=== PATIENT | male | born 1990 | race Hispanic/Latino ===

== ENCOUNTER 2024-11-19 11:44 | Outpatient (CLI) | payer OTHER, SELFPAY ==
--- NOTE | ~2024-11-19 | XR_ITS ---
Lumbosacral Spine: AP and lateral views Clinical History: Pain Findings: The normal lordotic curve is maintained. The vertebral bodies and posterior elements are i ntact. The intervertebral disc spaces are preserved. The sacroiliac joints are normally outlined. Impression: No significant abnormality. Reviewed, dictated and finalized at [facility]. LOGY TEACHER Impression: No significant abnormality.
--- NOTE | ~2024-11-19 | XR_ITS ---
AP view of the pelvis Clinical history: Pain Findings: No acute fracture or dislocation is seen. Osseous alignment is anatomic. Bilateral hip and SI joint spaces are preserved. Soft tissues are unremarkable. Impression: No significant abnormality is seen. Reviewed, dictated and finalized at location M. N ELEVATOR SUPERINTENDENT Impression: No significant abnormality is seen.
== END 2024-11-19 11:45 | disposition home or self-care (01) ==
LOC: MICIMG 11:49
PROVIDERS: PCP Chiropractor; Visit Provider Chiropractor
DX: M54.50 Low back pain, unspecified (principal); M54.16 Radiculopathy, lumbar region; M53.3 Sacrococcygeal disorders, not elsewhere classified
CPT/HCPCS: 72100; 72170

== ENCOUNTER 2025-01-08 04:19 | Emergency (ER) | payer OTHER, SELFPAY ==
--- OUTSIDE RECORDS SUMMARY | 2025-01-08 04:21 | XMS_ITS | Clinical Summary ---
Author Organization [facility] Virtual Care Address [address] [place] [phone] Phone Care Team Providers Care Direct Sales Professional Name Role Phone Casie Farr NP Primary Care Provider [phone] Allergies No known active allergies Medications ibuprofen 200 mg tab/cap Take 2 tablet/caps ule (400 mg total) by mouth every 6 (six) hours as needed for pain Active meloxicam (MOBIC) 15 mg tabletIndication s:Left sciatic nerve pain Take 1 tablet (15 mg total) by mouth daily for 15 days 15 tablet 11/05/2024 Active Hospital, Clinic, or Other Facility Administered Medication Ordered Dose Route Frequency Start Date End Date Status ketorolac (TORADOL) 30 mg/mL injection 30 mgIndications:Left sciatic nerve pain 30 mg IM Once 12/22/2024 12/22/2024 Ended Active Problems Problem Noted Date Diagnosed Date Left sciatic nerve pain 11/05/2024 Assessment & Plan (12/23/2024 5:26 AM CDT): Given Toradol injection Advised not to take ibuprofen, Advil, Motrin, Aleve, naproxen, or aspirin for the remainder of the day, however instructed can take Tylenol or acetaminophen and use topical analgesics such as lidocaine patch, Nathan-Goldman, Icy Hot, heat, and cold, resuming OTC NSAID as directed as needed tomorrow Discussed imaging of lumbar spine and referral to physical therapy if symptoms do not improve, not interested at this time Previously instructed to go to ER if loss of sensation in groin, loss of bowel or bladder control, or weakness or loss of sensation in lower extremity Assessment & Plan (11/05/2024 3:03 PM CROSS ROLLER): Started on meloxicam 15 mg daily with food, instructed to stop if GI upset occurs Advised not to take ibuprofen, Advil, Motrin, Aleve, naproxen, or aspirin while taking meloxicam, however instructed can take Tylenol or acetaminophen and use topical analgesics such as lidocaine patch, Nathan-Goldman, Icy Hot, heat, and cold Discussed imaging of lumbar spine and referral to physical therapy if symptoms do not improve Instructed to ER if loss of sensation in groin, loss of bowel or bladder control, or weakness or loss of sensation in lower extremity Vitamin D deficiency 08/01/2023 Assessment & Plan (07/21/2024 1:23 PM CDT): Chronicity and stability unknown, is taking a supplement, not sure of dose, states takes one drop every day Continued on vitamin D supplement Will monitor for stability Screening for thyroid disorder 07/19/2023 Class 1 obesity due to exces s calories without serious comorbidity with body mass index (BMI) of 31.0 to 31.9 in adult 07/19/2023 Assessment & Plan (12/23/2024 5:26 AM CDT): Stable Encouraged to: Make healthy food choices, limiting intake of concentrated sweets, cholesterol, and saturated fat Monitor daily caloric intake and portion sizes Exercise most days of the week for a goal of at least 150 minutes of exercise per week once current symptoms have resolved Assessment & Plan (11/05/2024 3:02 PM CROSS ROLLER): Stable Encouraged to: Make healthy food choices, limiting intake of concentrated sweets, cholesterol, and saturated fat Monitor daily caloric intake and portion sizes Exercise most days of the week for a goal of at least 150 minutes of exercise per week once current symptoms have resolved Assessment & Plan (07/21/2024 1:18 PM CDT): Chronic, stable Encouraged to: Make healthy food choices, limiting intake of concentrated sweets, cholesterol, and saturated fat Monitor daily caloric intake and portion sizes Exercise most days of the week for a goal of at least 150 minutes of exercise per week Assessment & Plan (07/19/2023 1:35 PM CDT): Chronicity and stability unknown Encouraged to monitor daily caloric intake and portion sizes and to exercise most days of the week, for a goal of at least 150 minutes of exercise per week Encounter for vitamin deficiency screening 07/19 Screening, anemia, deficiency, iron 07/19/2023 Mixed hyperlipidemia 07/19/2023 Assessment & Plan (07/21/2024 1:20 PM CDT): Chronicity and stability unknown Will monitor for stability Assessment & Plan (07/19/2023 1:34 PM CDT): Chronicity and stability unknown Ordered lipid panel Annual physical exam 07/19/2023 Assessment & Plan (07/21/2024 1:22 PM CDT): Reviewed past and current medical history, surgical history, social history, family history, current medications, and allergies. The chart was updated to identify any changes in these areas. A ROS and PE were performed. Labs were ordered. Discussed recommended immunizations. Patient will follow-up annually for physical exam, sooner if needed. Assessment & Plan (07/19/2023 1:33 PM CDT): Reviewed past and current medical history, surgical history, social history, family history, current medications, and allergies. The chart was updated to identify any changes in these areas. A ROS and PE were performed. Medications and labs were ordered and referrals were made. Discussed screening colonoscopy (not due), PSA screening (not due), and recommended immunizations. Patient will follow-up annually for physical exam, sooner if needed. Resolved Problems Problem Noted Date Diagnosed Date Resolved Date Acute pharyngitis 11/29/2023 07/21/2024 Exposure to strep throat 11/29/2023 Hypertriglyceridemia 08/01/2023 024 Chest pain 07/19/2023 07/21/2024 Assessment & Plan (07/19/2023 1:33 PM CDT): Chronic, episodic, currently asymptomatic Referral made to Cardiology for further evaluation and management Ordered chest x-ray Encounters Date Type Department Care Team Description 12/22/2024 9:45 AM CDT Office Visit [facility] Primary Care at [address] [phone] Casie Farr NP Ventral hernia without obstruction or gangrene (Primary Dx); Left sciatic nerve pain; Class 1 obesity due to excess calories without serious comorbidity with body mass index (BMI) of 31.0 to 31.9 in adult 11/05/2024 2:15 PM CROSS ROLLER Office Visit [facility] Primary Care at [address] [phone] Casie Farr NP Left sciatic nerve pain (Primary Dx); Class 1 obesity due to excess calories without serious comorbidity with body mass index (BMI) of 31.0 to 31.9 in adult from Last 3 Months Immunizations Immunization Administration Dates Next Due Hep A, Pediatric 02/03/2002 Hep B, Adolescent or Pediatric 11/25/2001,2000 HiB 08/26/2001 IPV 02/03/2002 Influenza, Unspecified 07/21/2024(Deferr ed: Patient Refused),07/01/2022(Deferred: Patient Refused) MMR 08/26/2001 Meningococcal C Conjugate 05/07/2007 Tdap 02/26/2019,07/23/2017,05/07/2007 Family History Medical History Relation Name Comments Cancer Paternal Grandmother Precious Gonzalez Relation Name Status Comments Paternal Grandmother Precious Gonzalez Social History Tobacco Use Types Packs/Day Years Used Date Smoking Tobacco: Every Day Cigarettes Tobacco Cessation:Ready to Q uit: Not Asked; Counseling Given: Not Answered Comments:Marijuana; AUDIT-C Answer Date Recorded Q1: How often do you have a drink containing alc ohol? Monthly or less 07/19/2023 Q2: How many drinks containi ng alcohol do you have on a typical day when you are drinking? 3 or 4 07/19/2023 Q3: How often do you have si x or more drinks on one occasion? Never 07/19/2023 PHQ-2 Answer Date Recorded PHQ-2 Total Score (If total score is 3 or more points, staff should administer the PHQ-9) 0 07/21/2024 Sex and Gender Information Value Date Recorded Sex Assigned at Not on file Legal Sex Male 9:01 PM CROSS ROLLER Gender Identity Male 04/20/2024 10:06 PM CDT Sexual Orientation Straight 04/20/2024 10 :06 PM CDT Obstetrics History Last Filed Vital Signs Vital Sign Reading Time Taken Comments Blood Pressure 120/68 12/22/2024 9:50 AM CDT Pulse 74 12/22/2024 9:50 AM CDT Temperature 37 C (98.6 F) 12/22/2024 9:50 AM CDT Respiratory Rate 14 12/22/2024 9:50 AM CDT Oxygen Saturation 98% 12/22/2024 9:50 AM CDT Inhaled Oxygen Concentration - - Weight 100.4 kg (221 lb 6.4 oz) 12/22/2024 9:50 AM CDT Height 179.9 cm (5' 10.82 ) 12/22/2024 9:50 AM C DT Body Mass Index 31.04 12/22/2024 9:50 AM CDT Plan of Treatment Health Maintenance Due Date Last Done Comments Pneumococcal vaccine <65 (1 of 2 - PCV) 2009 Covid-19 Vaccine ( - season) 2024 08/24/2021, 01/18/2021, 12/28/2020 Influenza Vaccine (Season Ended) 2025 Depression Screening 07/21/2025 07/21/2024, 07/19/2023, 07/19/2023 Regular Well Visit/Exam 18-64 07/21/2025 07/21/2024, 07/19/2023 DTaP/Tdap/Td Vaccine (4 - Td or Tdap) 02/26/2029 02/26/2019, 07/23/2017, 05/07/2007 Hepatitis B Screening Completed 11/25/2001 , 08/26/2001 Hepatitis C Screening Completed 08/19/2024 HPV Vaccines Aged Out No longer eligi ble based on patient's age to complete this topic Varicella Vaccines Discontinued Procedures Procedure Name Priority Date/Time Associated Diagnosis Comments HEPATITIS C ANTIBODY Routine 08/19/2024 12:07 PM CROSS ROLLER from Last 3 Months or Most Recently Relevant to Health Maintenance Results * Hepatitis C antibody (08/19/2024 12:07 PM CROSS ROLLER) Hep C Ab NON-REACTI VE NON-REACT MARCI [facility] Comment: HCV antibody was non-reactive. There is no laboratory evidence of HCV infection. In most cases, no further action is required. However, if recent HCV exposure is suspected, a test for HCV RNA (test code 78639) is suggested. For additional information please refer to http://education.Bee Networx (Astilbe)/faq/KTU56a0 (This link is being provided for informational/ educational purposes only.) 08/19/2024 12:0 7 PM CROSS ROLLER 08/19/2024 12:08 PM CROSS ROLLER Casie Farr NP LAB MICROBIOLOGY - GENERAL ORDER LORAINE Final Result Performing Organization Address City/State/[facility] Co de Phone Number [facility] [address] [place] [address] from Last 3 Months or Most Recently Relevant to Health Maintenance Insurance [facility] [employer] [facility] [facility] HMO/PPO Address: [facility] [address] [place] [address] [facility] [employer] [facility] HMO/PPO Address: [address] [address] Care Teams Direct Sales Professional Relationship Specialty Start Date End Date Casie Farr NP [address] [place] [phone] PCP - General Family Medicine 07/19/23
--- OUTSIDE RECORDS SUMMARY | 2025-01-08 04:21 | XMS_ITS | Clinical Summary ---
Author Organization [facility] Care Team Providers Care Clay Digger Name Role Phone Unavailable Primary Care Provider Unavailabl e Social History Tobacco Use Types Packs/Day Years Used Date Smoking Tobacco: Never Assessed Sex and Gender Information Value Date Recorded Sex Assigned at Not on file Legal Sex Male 1:58 PM SUMMER INTERNSHIP Gender Identity Not on file Sexual Orientation Not on file Plan of Treatment Health Maintenance Due Date Last Done Comments Hepatitis C Virus (HCV) Screening 1990 Hepatitis B Immunization (3 of 3 - 3-dose series) 01/20/2002 11/25/2001, 08/26/2001 Influenza Immunization (#1) 2024 SARS-COV-2 Immunization ( season) 2024 Respiratory Syncytial Virus (RSV) Immunization (Adult) (1 - 1-dose 75+ series) 2065 DTaP/Tdap/Td Immunization Discontinued 2016, 05/07/2007 TdaP Immunization Completed 07/23/2017, 05/07/2007 Meningococcal Immunization (ACWY) Aged Out No longer eligible based on patient's age to complete this topic Pneumococcal Immunization Combined Aged Out No longer eligible based on patient's age to complete this topic Rotavirus Immunization Aged Out No lo nger eligible based on patient's age to complete this topic
--- OUTSIDE RECORDS SUMMARY | 2025-01-08 04:21 | XMS_ITS | Referral Summary ---
Author Organization [facility] Virtual Care Address [address] [place] [phone] Phone Care Team Providers Care Bee Breeder Name Role Phone Casie Farr NP Primary Care Provider [phone] Encounters Date Type Department Care Team Description 12/22/2024 9:45 AM CDT Office Visit [facility] Medical [facility] Primary Care at [address] [phone] Casie Farr NP Ventral hernia without obstruction or gangrene (Primary Dx); Left sciatic nerve pain; Class 1 obesity due to excess calories without serious comorbidity with body mass index (BMI) of 31.0 to 31.9 in adult 11/05/2024 2:15 PM SOYFREEZE OPERATOR Office Visit [facility] Primary Care at [address] [phone] Casie Farr NP Left sciatic nerve pain (Primary Dx); Class 1 obesity due to excess calories without serious comorbidity with body mass index (BMI) of 31.0 to 31.9 in adult from Last 3 Months Allergies No known active allergies Medications ibuprofen [...] extremity Assessment & Plan (11/05/2024 3:03 PM SOYFREEZE OPERATOR): Started on meloxicam 15 mg daily with [...] resolved Assessment & Plan (11/05/2024 3:02 PM SOYFREEZE OPERATOR): Stable Encouraged to: Make healthy food choices, [...] further evaluation and management Ordered chest x-ray Immunizations Immunization Administration Dates Next Due Hep A, Pediatric 02/03/2002 Hep B, Adolescent or Pediatric 11/25/2001,2000 HiB 08/26/2001 IPV 02/03/2002 Influenza, Unspecified 07/21/2024(Deferr ed: Patient Refused),07/01/2022(Deferred: Patient Refused) MMR 08/26/2001 Meningococcal C Conjugate 05/07/2007 Tdap 02/26/2019,07/23/2017,05/07/2007 Social History Tobacco Use Types Packs/Day Years [...] on file Legal Sex Male 9:01 PM SOYFREEZE OPERATOR Gender Identity Male 04/20/2024 10:06 PM CDT Sexual Orientation Straight 04/20/2024 10 :06 PM CDT Last Filed Vital Signs Vital Sign Reading [...] 12/22/2024 9:50 AM CDT Plan of Treatment Not on file Procedures Procedure Name Priority Date/Time Associated Diagnosis Comments HEPATITIS C ANTIBODY Routine 08/19/2024 12:07 PM SOYFREEZE OPERATOR from Last 3 Months or Most Recently Relevant to Health Maintenance Results * Hepatitis C antibody (08/19/2024 12:07 PM SOYFREEZE OPERATOR) Hep C Ab NON-REACTI VE NON-REACT MARCI [facility] Comment: HCV antibody was non-reactive. There is no laboratory evidence of HCV infection. In most cases, no further action is required. However, if recent HCV exposure is suspected, a test for HCV RNA (test code 95644) is suggested. For additional information please refer to http://education.Novawise.elmeme.me/faq/NAD79t1 (This link is being provided for informational/ educational purposes only.) 08/19/2024 12:0 7 PM SOYFREEZE OPERATOR 08/19/2024 12:08 PM SOYFREEZE OPERATOR us Casie Farr NP LAB MICROBIOLOGY - GENERAL ORDER LORAINE Final Result [facility] [address] [address], [place] [phone] from Last 3 Months or Most Recently Relevant to Health Maintenance Insurance [employer] HMO/PPO Address: [place] [address] [employer] [facility] [employer] H[employer]/PPO Address: [place] [address] Care Teams Bee Breeder Relationship Specialty Start Date End Date Casie Farr, TENTERING MACHINE FEEDER [address] [place] [phone] PCP - General Family Medicine 07/19/23
--- OUTSIDE RECORDS SUMMARY | 2025-01-08 04:21 | XMS_ITS | Clinical Summary ---
Author Organization [facility] Address [address] [place] [id number] Care Team Providers Care Cosmetic Surgeon Name Role Phone Unavailable Primary Care Provider Unavailabl e Immunizations Name Administration Dates Next Due PFIZER COVID-19 (ORIGINAL FO RMULATION, PURPLE CAP) mRNA, LNP-S, PF, 30 MCG/0.3 ML DOSE 01/18/2021,12/28/2020 Social History Tobacco Use Types Packs/Day Years Used Date Smoking Tobacco: Never Assessed Sex and Gender Information Value Date Recorded Sex Assigned at Not on file Legal Sex Male 8:30 PM CDT Gender Identity Not on file Sexual Orientation Not on file Last Filed Vital Signs Vital Sign Reading Time Taken Comments Blood Pressure 123/75 03/18/2014 11:11 AM CDT Pulse 72 03/18/2014 11:11 AM CDT Temperature - - Respiratory Rate - - Oxygen Saturation - - Inhaled Oxygen Concentration - - Weight 96.6 kg (213 lb) 03/18/2014 11:11 AM CDT Height 177.8 cm (5' 10 ) 03/18/2014 11:11 AM CDT Body Mass Index 30.56 03/18/2014 11:11 AM CDT Plan of Treatment Health Maintenance Due Date Last Done Comments Annual Physical 1993 Hepatitis C 01/12/2008 DTaP, Tdap and Td Vaccines ( 1 - Tdap) 2009 Hepatitis B Vaccines (1 of 3 - 19+ 3-dose series) 2009 COVID-19 Vaccine (2023-2 5 season) 2024 01/18/2021, 12/28/2020 HPV Vaccines Aged Out No longer eligi ble based on patient's age to complete this topic Meningococcal B Vaccine Aged Out No l onger eligible based on patient's age to complete this topic Meningococcal Vaccine Aged Out No marilee rupal eligible based on patient's age to complete this topic Pneumococcal Vaccine: Pediatrics (0 to 5 Years) and At-Risk Patients (6 to 64 Years) Aged Out No longer eligible b ased on patient's age to complete this topic RSV Immunizations Under 20 Months Aged Out No longer eligible b ased on patient's age to complete this topic
[2025-01-08 04:31] VITALS: BP 136/89; PULSE 89; RESP 19; TEMP 37; O2SAT 98
--- NOTE | 2025-01-08 05:07 | ED.GENADULT ---
HPI - General Adult General Chief complaint: Back Pain/Injury Stated complaint: back pain Time Seen by Provider: 01/08/25 04:37 History of Present Illness HPI narrative: Patient 34-year-old gentleman who presents emergency department with chief complaint of sciatic pain. Patient reports 7 recently treated with anti-inflammatories had plain film x-rays reports that his pain has gotten worse this evening the patient states he is not able to get comfortable reports that he has had no bowel or bladder incontinence denies saddle anesthesia denies footdrop Related Data Allergies Allergy/AdvReac Type Severity Reaction Status Date / Time No Known Allergies Allergy Unverified 12/30/13 10:45 Review of Systems Review of Systems: A 10 system review of systems was completed on the patient and is negative except for what is stated in the HPI. Nursing and ancillary documentation was reviewed. PMFSH Social History Social History Second hand tobacco smoke exposure: Yes Alcohol intake: current Exam Narrative: GENERAL: Well-appearing, well-nourished, and in no acute distress. HEAD: Normocephalic, atraumatic. EYES: PERRLA and EOMI. ENT: Nares clear, no rhinorrhea or epistaxis. Mucous membranes moist. NECK: Supple. CHEST: Clear to auscultation. No respiratory distress. HEART: Regular rate and rhythm. No murmur heard. Normal peripheral pulses. ABDOMEN: Soft, nontender, nondistended, normal active bowel sounds. EXTREMITIES: Normal range of motion. No edema. Tenderness to palpation of the left SI joint SKIN: Warm, dry, no rash. NEURO: No focal deficits. Alert and oriented x3. No saddle anesthesia, no footdrop PSYCH: Normal mood and affect. Course Vital Signs Vital signs: Vital Signs Temperature 37.0 C 01/08/25 04:31 Pulse Rate 89 01/08/25 04:31 Respiratory Rate 19 01/08/25 04:31 Blood Pressure 136/89 01/08/25 04:31 Pulse Oximetry 98 01/08/25 04:31 Oxygen Delivery Room Air 01/08/25 04:31 Temperature 37.0 C 01/08/25 04:31 Pulse Rate 89 01/08/25 04:31 Respiratory Rate 19 01/08/25 04:31 Blood Pressure 136/89 01/08/25 04:31 Pulse Oximetry 98 01/08/25 04:31 Oxygen Delivery Room Air 01/08/25 04:31 Medical Decision Making MDM Narrative Medical decision making narrative: Patient shows no signs of acute nerve root compression. Patient will be treated symptomatically and should follow up with primary care Vital Signs Vital Signs: Vital Signs Temperature 37.0 C 01/08/25 04:31 Pulse Rate 89 01/08/25 04:31 Respiratory Rate 19 01/08/25 04:31 Blood Pressure 136/89 01/08/25 04:31 Pulse Oximetry 98 01/08/25 04:31 Oxygen Delivery Room Air 01/08/25 04:31 Temperature 37.0 C 01/08/25 04:31 Pulse Rate 89 01/08/25 04:31 Respiratory Rate 19 01/08/25 04:31 Blood Pressure 136/89 01/08/25 04:31 Pulse Oximetry 98 01/08/25 04:31 Oxygen Delivery Room Air 01/08/25 04:31 Discharge Plan Discharge Clinical Impression: Sciatica Patient Disposition: Home Condition: Stable Instructions: Antibiotic Form, Sciatica (ED) Patient Language: German Prescriptions: New cyclobenzaprine 10 mg tablet 10 mg PO TID PRN (Reason: muscle spasm) Qty: 21 0RF diclofenac potassium 50 mg tablet 50 mg PO TID PRN (Reason: pain) Qty: 30 0RF prednisone 20 mg tablet 40 mg PO DAILY 5 Days Qty: 10 0RF lidocaine [Lidoderm] 5 % adhesive patch,medicated 1 patch topical DAILY Qty: 15 0RF Rx Instructions: leave on most painful area for up to 12 hrs Follow-up/Referrals: Ruddy,Vivek Huang DC, CCST [Primary Care Provider] - Time of Disposition: 06:25
--- OUTSIDE RECORDS SUMMARY | 2025-01-08 05:30 | XMS_ITS | Clinical Summary ---
Author Organization [facility] Care Team Providers Care Baker Second Name Role Phone Unavailable Primary Care Provider Unavailabl e Social History Tobacco Use Types Packs/Day Years Used Date Smoking Tobacco: Never Assessed Sex and Gender Information Value Date Recorded Sex Assigned at Not on file Legal Sex Male 1:58 PM JINGLE WRITER Gender Identity Not on file Sexual Orientation [...]
--- OUTSIDE RECORDS SUMMARY | 2025-01-08 05:30 | XMS_ITS | Clinical Summary ---
Author Organization [facility] Address [address] [place] [id number] Care Team Providers Care Chicken Hanger Name Role Phone Unavailable Primary Care Provider [...]
--- OUTSIDE RECORDS SUMMARY | 2025-01-08 05:30 | XMS_ITS | Referral Summary ---
Author Organization [facility] Virtual Care Address [address] [place] [id number] Phone Care Team Providers Care Distribution Engineer Name Role Phone Casie Farr NP Primary Care Provider [phone] Encounters Date Type Department Care Team Description 12/22/2024 9:45 AM CDT Office Visit [facility] at [address] [phone] Casie Farr NP Ventral hernia without obstruction or gangrene (Primary Dx); Left sciatic nerve pain; Class 1 obesity due to excess calories without serious comorbidity with body mass index (BMI) of 31.0 to 31.9 in adult 11/05/2024 2:15 PM LOGGER ALL ROUND Office Visit [facility] Primary Care at [address] [phone] Casie Farr NP Left sciatic [...] extremity Assessment & Plan (11/05/2024 3:03 PM LOGGER ALL ROUND): Started on meloxicam 15 mg daily with [...] resolved Assessment & Plan (11/05/2024 3:02 PM LOGGER ALL ROUND): Stable Encouraged to: Make healthy food choices, [...] on file Legal Sex Male 9:01 PM LOGGER ALL ROUND Gender Identity Male 04/20/2024 10:06 PM CDT [...] HEPATITIS C ANTIBODY Routine 08/19/2024 12:07 PM LOGGER ALL ROUND from Last 3 Months or Most Recently Relevant to Health Maintenance Results * Hepatitis C antibody (08/19/2024 12:07 PM LOGGER ALL ROUND) Hep C Ab NON-REACTI VE NON-REACT [facility] Comment: HCV antibody was non-reactive. There is no laboratory evidence of HCV infection. In most cases, no further action is required. However, if recent HCV exposure is suspected, a test for HCV RNA (test code 62859) is suggested. For additional information please refer to http://education.[employer]/faq/JKE22w2 (This link is being provided for informational/ educational purposes only.) 08/19/2024 12:0 7 PM LOGGER ALL ROUND 08/19/2024 12:08 PM LOGGER ALL ROUND us Casie Farr NP LAB MICROBIOLOGY - GENERAL ORDER LORAINE Final Result [facility] [address] [address], [place] [phone] from Last 3 Months or Most Recently Relevant to Health Maintenance Insurance [employer] [facility] [employer] H[employer]/PPO Address: [place] [id number] [employer] [facility] [facility] [employer]/PPO Address: [place] [address] Care Teams Distribution Engineer Relationship Specialty Start Date End Date Casie Farr, ELECTRICAL WORKER [address] [place] [phone] PCP - General Family Medicine 07/19/23
--- OUTSIDE RECORDS SUMMARY | 2025-01-08 05:30 | XMS_ITS | Clinical Summary ---
Author Organization [facility] Virtual Care Address [address] [place] [phone] Phone Care Team Providers Care Rebar Worker Name Role Phone Casie Farr NP Primary Care Provider [phone] Allergies No known active allergies Medications ibuprofen [...] extremity Assessment & Plan (11/05/2024 3:03 PM WEFT STRAIGHTENER): Started on meloxicam 15 mg daily with [...] resolved Assessment & Plan (11/05/2024 3:02 PM WEFT STRAIGHTENER): Stable Encouraged to: Make healthy food choices, [...] Description 12/22/2024 9:45 AM CDT Office Visit [facility] Primary Care at [address] [phone] Casie Farr NP Ventral hernia without obstruction or gangrene (Primary Dx); Left sciatic nerve pain; Class 1 obesity due to excess calories without serious comorbidity with body mass index (BMI) of 31.0 to 31.9 in adult 11/05/2024 2:15 PM WEFT STRAIGHTENER Office Visit [facility] Primary Care at [address] [phone] Casie Farr NP Left sciatic [...] on file Legal Sex Male 9:01 PM WEFT STRAIGHTENER Gender Identity Male 04/20/2024 10:06 PM CDT [...] HEPATITIS C ANTIBODY Routine 08/19/2024 12:07 PM WEFT STRAIGHTENER from Last 3 Months or Most Recently Relevant to Health Maintenance Results * Hepatitis C antibody (08/19/2024 12:07 PM WEFT STRAIGHTENER) Hep C Ab NON-REACTI VE NON-REACT [facility] Comment: HCV antibody was non-reactive. There is no laboratory evidence of HCV infection. In most cases, no further action is required. However, if recent HCV exposure is suspected, a test for HCV RNA (test code 39442) is suggested. For additional information please refer to http://education.[employer]/faq/JGH84z3 (This link is being provided for informational/ educational purposes only.) 08/19/2024 12:0 7 PM WEFT STRAIGHTENER 08/19/2024 12:08 PM WEFT STRAIGHTENER Casie Farr NP LAB MICROBIOLOGY - GENERAL ORDER LORAINE Final Result Performing Organization Address City/State/[facility] Co de Phone Number [facility] [phone] [place] [address] from Last 3 Months or Most Recently Relevant to Health Maintenance Insurance [facility] EM[employer]OYEES [facility] H[employer]/PPO Address: [facility] [address] [place] [address] [facility] [employer] [facility] H[employer]/PPO Address: [address] [address] Care Teams Rebar Worker Relationship Specialty Start Date End Date Casie Farr NP [address] [place] [id number] PCP - General Family Medicine 07/19/23
[2025-01-08] MEDS: HYDROcodone/acetaminophen (*CRX) 5-325 MG TABLET 1 TAB PO (05:32)
[2025-01-08] MEDS: KETOROLAC (*BKC) 60 MG/2 ML VIAL IM (05:33)
[2025-01-08] MEDS: ORPHENADRINE CITRATE 100 MG TABLET.ER PO (05:33)
[2025-01-08] MEDS: dexAMETHasone SOD PHOS INJ 10 MG/ML 1 ML VIAL IM (05:36)
[2025-01-08] MEDS: LIDOCAINE 5% PATCH 1 PATCH TRANSDERM (05:38)
[2025-01-08 06:31] VITALS: BP 128/84; PULSE 81; RESP 17; O2SAT 100
== END 2025-01-08 06:33 | disposition home or self-care (01) ==
PROVIDERS: Emergency Provider Emergency Medicine; PCP Chiropractor
DX: M54.42 Lumbago with sciatica, left side (principal)
CPT/HCPCS: 96372; 99284; A9270; J1100; J1885